=== PATIENT | male | born 2000 | race African-American/Black ===

== ENCOUNTER 2019-05-31 16:53 | Inpatient (IN) | payer MEDICAID ==
[~2019-05-31] VITALS: Ht 172.7 cm; Wt 59.0 kg
[2019-05-31] MEDS ORDERED: ONDANSETRON HCL 4MG/2ML INJ IV STA (18:35)
[2019-05-31] MEDS ORDERED: MAGNESIUM/ALUMINUM HYDROXIDE/SIMETHICONE 30ML UDC PO STA (18:35)
[2019-05-31] MEDS ORDERED: VISCOUS LIDOCAINE 2% 15 ML UDC PO STA (18:35)
[2019-05-31] MEDS ORDERED: FAMOTIDINE 20MG/2ML VIAL IV STA (18:35)
[2019-05-31] MEDS ORDERED: MORPHINE SULFATE 4 MG/ML CPJ (NOT FOR IM USE) IV ONE (18:45)
[2019-05-31] MEDS ORDERED: SODIUM CHLORIDE 0.9% 1,000 ML IV ONE (18:45)
[2019-05-31 19:18] LABS: CHLORIDE 104 mEq/L (98-107); HEMATOCRIT. 44.4 % (42.0-52.0); MEAN CORPUSCULAR HEMOGLOBIN 31.8 pg (28.0-32.0); MEAN CORPUSCULAR VOLUME 94.1 fL (80.0-94.0); MEAN PLATELET VOLUME 9.5 fl (7.4-10.4); PLATELET 236 x1000/uL (130-400); RED BLOOD CELL COUNT 4.71 mill/uL (4.7-6.1); RED CELL DISTRIBUTION WIDTH 13.8 % (11.6-14.6)
[2019-05-31 19:20] LABS: CLARITY URINE CLOUDY (CLEAR); COLOR URINE YELLOW (YELLOW); KETONES URINE 1+ (NEGATIVE); LEUKOCYTE ESTERASE URINE NEGATIVE (NEGATIVE); NITRITE URINE NEGATIVE (NEGATIVE); OCCULT BLOOD URINE NEGATIVE (NEGATIVE); PH URINE 8.5 (4.5-8.0); PROTEIN URINE NEGATIVE (NEGATIVE); SPECIFIC GRAVITY URINE 1.021 (1.005-1.030)
[2019-05-31 19:21] LABS: INR 1.1; PROTHROMBIN TIME 11.3 sec (9.6-11.0)
[2019-05-31 21:01] LABS: PLATELET ESTIMATE NORMAL
[2019-05-31] MEDS ORDERED: PIPERACILLIN/TAZOBACTAM 3.375GM/50ML PREMIX IV ONE (21:15)
[2019-05-31] MEDS ORDERED: IOHEXOL-300 100 ML BOTTLE ONE (21:16)
[2019-05-31] MEDS ORDERED: PIPERACILLIN/TAZ 3.375G PREMIX 50 ML IV NR (21:30)
[2019-05-31] MEDS ORDERED: PIPERACILLIN/TAZOBACTAM 3.375 G in DEXT 5% WATER 100 ML IV NR (21:53)
[2019-05-31] MEDS ORDERED: ROCURONIUM BROMIDE 10MG/ML VIAL 5ML IV ONE (22:03)
[2019-05-31] MEDS ORDERED: PROPOFOL 200MG/20ML VIAL IV ONE (22:03)
[2019-05-31] MEDS ORDERED: SUCCINYLCHOLINE CHLORIDE 200MG/10ML IV ONE (22:04)
[2019-05-31] MEDS ORDERED: LIDOCAINE HCL/PF 1% 10 MG/ML 5ML VIAL ONE (22:04)
[2019-05-31] MEDS ORDERED: ONDANSETRON HCL 4MG/2ML INJ ONE (22:04)
[2019-05-31] MEDS ORDERED: METOCLOPRAMIDE HCL 10MG/2ML VIAL ONE (22:04)
[2019-05-31] MEDS ORDERED: BUPIVACAINE HCL 0.5% (5MG/ML) 50ML ONE (22:23)
[2019-05-31] MEDS ORDERED: SKIN ADHESIVE 0.7 GM EA TOP ONE (22:23)
[2019-05-31] MEDS ORDERED: FENTANYL CITRATE/PF 50MCG/ML 5ML VIAL ONE (22:41)
[2019-05-31] MEDS ORDERED: MIDAZOLAM HCL 2 MG/2 ML VIAL ONE (22:41)
[2019-05-31] MEDS ORDERED: MORPHINE SULFATE 2 MG/ML CPJ (NOT FOR IM USE) IV PRN (23:15)
[2019-05-31] MEDS ORDERED: MORPHINE SULFATE 4 MG/ML CPJ (NOT FOR IM USE) IV PRN (23:15)
[2019-05-31] MEDS ORDERED: HYDROCODONE/ACETAMINOPHEN 5/325MG TABLET PO PRN ×2 (23:15)
[2019-05-31] MEDS ORDERED: ONDANSETRON HCL 4MG/2ML INJ IV PRN (23:15)
[2019-05-31] MEDS ORDERED: NEOSTIGMINE METHYLSULFATE 1MG/ML 10 ML VIAL ONE (23:24)
[2019-05-31] MEDS ORDERED: GLYCOPYRROLATE 0.2 MG/ML 2ML VIAL ONE (23:24)
[2019-05-31] MEDS ORDERED: KETOROLAC 30MG/ML VIAL ONE (23:27)
[2019-06-01] MEDS ORDERED: SODIUM CHLORIDE 0.9% 1,000 ML IV SCH (00:09)
[2019-06-01] MEDS ORDERED: HYDROMORPHONE HCL/PF 2MG/ML CPJ IV PRN (00:15)
[2019-06-01] MEDS ORDERED: MORPHINE SULFATE 2 MG/ML CPJ (NOT FOR IM USE) IV PRN (00:15)
[2019-06-01] MEDS ORDERED: GLYCOPYRROLATE 0.2 MG/ML 2ML VIAL ONE ×2 (00:23)
[2019-06-01] MEDS ORDERED: NEOSTIGMINE METHYLSULFATE 1MG/ML 10 ML VIAL ONE (00:23)
[2019-06-01 02:30] VITALS: BP 136/73
[2019-06-01] MEDS: DEXT 5%/0.45% NACL KCL 20MEQ/L 1,000 ML IV SCH ×2 (03:30→13:30)
[2019-06-01 04:00] VITALS: BP 113/62
[2019-06-01] MEDS: SODIUM CHLORIDE 0.9% INJ 3ML FLUSH IVF SCH ×2 (07:00→13:40)
[2019-06-01 08:00] VITALS: BP 108/62
[2019-06-01 12:00] VITALS: BP_SYST 112; BP_SYST 115; BP_DIAS 56; BP_DIAS 67
[2019-06-01 14:14] VITALS: BP 115/56
== END 2019-06-01 14:40 | disposition home or self-care (01) | DRG 234 ==
LOC: ER 16:53 → 6EST 22:45 → ENRESERV 06-01 00:18
PROVIDERS: ADMIT Internal Medicine; ATTEND Internal Medicine
PROC: 0DTJ4ZZ Resection of Appendix, Percutaneous Endoscopic Approach (ICD-10-PCS; principal; 2019-06-01)
DX: K35.80 Unspecified acute appendicitis (principal)
CPT/HCPCS: 36415; 74177; 81003; 88304; 93005; 96361; 96374; 96375; 99285; J0330; J1885; J2250; J2270; J2405; J2543; J2704; J2710; J2765; J3010; J3490; J7030; J7060; Q9967

== ENCOUNTER 2019-06-07 22:40 | Emergency (ER) | payer MEDICAID ==
[~2019-06-07] VITALS: Ht 172.7 cm; Wt 56.0 kg
[2019-06-07 22:52] VITALS: BP 110/65
== END 2019-06-07 23:53 | disposition home or self-care (01) ==
LOC: ER 22:40
DX: M79.605 Pain in left leg (principal); M79.604 Pain in right leg; F12.10 Cannabis abuse, uncomplicated; Z90.49 Acquired absence of other specified parts of digestive tract
CPT/HCPCS: 99283

== ENCOUNTER 2021-12-20 21:56 | Emergency (ER) | payer MEDICAID ==
[~2021-12-20] VITALS: Ht 175.3 cm; Wt 68.0 kg
[2021-12-20 22:05] VITALS: BP 106/54
== END 2021-12-20 23:20 | disposition left against medical advice (07) ==
LOC: ER 21:56
DX: Z53.21 Procedure and treatment not carried out due to patient leaving prior to being seen by health care provider (principal)